=== PATIENT | female | born 1990 | race Two or more races ===

== ENCOUNTER 2017-07-06 13:50 | Emergency (ER) | payer OTHER ==
[~2017-07-06] VITALS: Ht 157.5 cm; Wt 56.7 kg
[2017-07-06 13:50] VITALS: BP 128/76
[2017-07-06] MEDS ORDERED: LORAZEPAM 1 MG TABLET ONE (14:10)
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
[2017-07-06] MEDS ORDERED: LORAZEPAM 1 MG TABLET PO ONE (14:30)
[2017-07-06] MEDS ORDERED: ONDANSETRON 4 MG TAB.RAPDIS ONE (15:02)
--- NOTE | 2017-07-06 15:17 | NUR ---
Gave pt RX and d/c instructions, verbalized understanding.
[2017-07-06] MEDS ORDERED: ONDANSETRON 4 MG TAB.RAPDIS SL ONE (15:30)
== END 2017-07-06 15:18 | disposition home or self-care (01) ==
LOC: ER 13:53
DX: F41.0 Panic disorder [episodic paroxysmal anxiety] (principal); Z65.4 Victim of crime and terrorism; Z88.5 Allergy status to narcotic agent
CPT/HCPCS: 99284; A4606; Q0162; Z7610